=== PATIENT | male | born 1970 ===

== ENCOUNTER 2024-08-30 12:02 | Emergency (ER) | payer OTHER, SELFPAY ==
[2024-08-30 12:05] VITALS: BP 125/86
[2024-08-30 12:07] VITALS: BMI 28.3
[2024-08-30 12:33] LABS: % Basophils 0.7 % (0-2); % Eosinophils 0.7 % (0-6); % Immature Granulocytes 0.1 % (0-0.5); % Lymphocytes 23.9 % (20.5-51.1); % Monocytes 5.8 % (1.7-9.3); % Neutrophils 68.8 % (42.2-75.2); Absolute Basophils 0.1 10^3/uL (0-0.2); Absolute Eosinophils 0.1 10^3/uL (0-0.7); Absolute Lymphocytes 1.7 10^3/uL (1.2-3.4); Absolute Monocytes 0.4 10^3/uL (0.1-0.6); Absolute Neutrophils 4.9 10^3/uL (1.4-6.5); Hematocrit 35.5 % (39.0-52.0); Hemoglobin 12.9 g/dL (13.0-18.0); Mean Corp Hgb Conc. 36.3 g/dL (33.0-37.0); Mean Corpuscular Hgb 30.1 pg (27.0-31.0); Mean Corpuscular Volume 82.8 fL (80.0-94.0); Mean Platelet Volume 9.7 fL (7.4-10.4); Nucleated Red Blood Cells % 0 % (-); Platelet Count 272 10^3/uL (130-400); Red Blood Cell Count 4.29 10^6/uL (4.70-6.10); Red Cell Dist. Width 11.3 % (11.5-14.5); White Blood Cell Count 7.1 10^3/uL (4.8-10.8)
--- NOTE | 2024-08-30 12:50 | ED.GENMED ---
History of Present Illness
<Wendy Jennings PA-C - Last Filed: 08/31/24 22:26>
General
Chief Complaint: Cardiac Symptoms
Source: patient
Exam Limitations: none
Time Seen by Provider: 08/30/24 12:09
Nursing documentation reviewed up to this point in time: agreed with
History of Present Illness
History of Present Illness:
see MDM
Past History
<ZACH Lange Last Filed: 08/31/24 22:26>
Past History
ED Past Medical History: Other (opiate dependence ) and Other (kidney sotne)
ED Past Surgical History: None
Review of Systems
<Wendy Jennings PA-C - Last Filed: 08/31/24 22:26>
Review of Systems
Allergies reviewed?: Yes
All Other Systems: Not applicable
Phy Exam
<ZACH Lange Last Filed: 08/31/24 22:26>
Physical Exam
Physical Exam:
GENERAL: Alert , in no apparent distress
EYE: pupils equal and reactive
NECK: Supple
ENT: o/p clr, mmm.
CARDIAC: Regular rate and rhythm .
chest wall nontender
LUNGS: Clear breath sounds bilaterally, no acute respiratory distress, no wheezes/rales/rhonchi
ABDOMEN: Soft, without focal tenderness, no r/g, no cvat, normal bowel sounds
NEUROLOGICAL: Alert and oriented, no focal neuro deficits
SKIN: Warm and dry, skin intact.
MUSCULOSKELETAL: No edema, well perfused. neg laverne's sign
PSYCH: Normal and appropriate interaction.
Course
<ZACH Lange Last Filed: 08/31/24 22:26>
Orders/Labs/Results
Orders:
Orders
08/30/24 12:09
Electrocardiogram (*1) Urgent
Reason for Study: Chest Pain
Cardiac Monitoring- Treatment ONCE
EKG- Treatment ONCE
IV Insert/Care/Rem.- Treatment PRN
O2 Therapy [RESP] Urgent
Titrate/Wean O2 to maintain O2 sat greater than (%): 90
Special Instructions: Maintain sats >/=90%
Pulse Ox/spot Check [RESP] Urgent
Quantity: 1
Special Instructions: ON ROOM AIR
08/30/24 12:10
Complete Blood Count/With Diff Urgent
Comprehensive Metabolic Panel Urgent
Troponin I Urgent
08/30/24 12:45
Bladder Scan- Treatment ONCE
08/30/24 12:47
CR Chest - 2 Views Urgent
Comment:
Reason For Exam: sudden chst tightness
08/30/24 12:58
D-Dimer Urgent
08/30/24 13:23
EKG- Treatment ONCE
08/30/24 13:43
Fentanyl, Urine Urgent
Urinalysis Reflex To Culture Urgent
Date Specimen was Collected: 08/30/24
Time Specimen was Collected: 12:47
Urine Drug Abuse Screen Urgent
Date Specimen was Collected: 08/30/24
Time Specimen was Collected: 12:47
08/30/24 13:59
Add On- LAB Urgent
Tests Added?: urine drug screen
08/30/24 14:11
Tamsulosin [Flomax] 0.4 mg PO NOW STA
08/30/24 14:15
CT Abd/pel Without Iv Or Oral Urgent
Comment:
Reason For Exam: h/o kidney stones, urinary retnetion
08/30/24 16:30
Electrocardiogram (*1) Urgent
Reason for Study: Chest Pain
Troponin I Urgent
Abnormal Lab Results
08/30/24 08/30/24
12:10 13:43
RBC 4.29 L 10^6/uL
(4.70-6.10)
Hgb 12.9 L g/dL
(13.0-18.0)
Hct 35.5 L %
(39.0-52.0)
RDW 11.3 L %
(11.5-14.5)
Glucose 116 H mg/dl
(70-99)
Ur Buprenorphine Positive H
(Negative)
08/30/24 12:10
08/30/24 12:10
Vital Signs
Initial and Last Documented VS:
Initial Vital Signs
Temp Pulse Resp BP Pulse Ox
37.1 C 95 20 125/86 97
08/30/24 12:05 08/30/24 12:05 08/30/24 12:05 08/30/24 12:05 08/30/24 12:05
Last Documented Vital Signs
Temp Pulse Resp BP Pulse Ox
37.1 C 76 14 138/88 99
08/30/24 12:05 08/30/24 17:15 08/30/24 17:15 08/30/24 14:00 08/30/24 14:00
<Olamide Kirkland PA-C - Last Filed: 08/31/24 00:45>
Orders/Labs/Results
Orders:
Orders
08/30/24 12:09
Electrocardiogram (*1) Urgent
Reason for Study: Chest Pain
Cardiac Monitoring- Treatment ONCE
EKG- Treatment ONCE
IV Insert/Care/Rem.- Treatment PRN
O2 Therapy [RESP] Urgent
Titrate/Wean O2 to maintain O2 sat greater than (%): 90
Special Instructions: Maintain sats >/=90%
Pulse Ox/spot Check [RESP] Urgent
Quantity: 1
Special Instructions: ON ROOM AIR
08/30/24 12:10
Complete Blood Count/With Diff Urgent
Comprehensive Metabolic Panel Urgent
Troponin I Urgent
08/30/24 12:45
Bladder Scan- Treatment ONCE
08/30/24 12:47
CR Chest - 2 Views Urgent
Comment:
Reason For Exam: sudden chst tightness
08/30/24 12:58
D-Dimer Urgent
08/30/24 13:23
EKG- Treatment ONCE
08/30/24 13:43
Fentanyl, Urine Urgent
Urinalysis Reflex To Culture Urgent
Date Specimen was Collected: 08/30/24
Time Specimen was Collected: 12:47
Urine Drug Abuse Screen Urgent
Date Specimen was Collected: 08/30/24
Time Specimen was Collected: 12:47
08/30/24 13:59
Add On- LAB Urgent
Tests Added?: urine drug screen
08/30/24 14:11
Tamsulosin [Flomax] 0.4 mg PO NOW STA
08/30/24 14:15
CT Abd/pel Without Iv Or Oral Urgent
Comment:
Reason For Exam: h/o kidney stones, urinary retnetion
08/30/24 16:30
Electrocardiogram (*1) Urgent
Reason for Study: Chest Pain
Troponin I Urgent
Abnormal Lab Results
08/30/24 08/30/24
12:10 13:43
RBC 4.29 L 10^6/uL
(4.70-6.10)
Hgb 12.9 L g/dL
(13.0-18.0)
Hct 35.5 L %
(39.0-52.0)
RDW 11.3 L %
(11.5-14.5)
Glucose 116 H mg/dl
(70-99)
Ur Buprenorphine Positive H
(Negative)
08/30/24 12:10
08/30/24 12:10
Vital Signs
Initial and Last Documented VS:
Initial Vital Signs
Temp Pulse Resp BP Pulse Ox
37.1 C 95 20 125/86 97
08/30/24 12:05 08/30/24 12:05 08/30/24 12:05 08/30/24 12:05 08/30/24 12:05
Last Documented Vital Signs
Temp Pulse Resp BP Pulse Ox
37.1 C 76 14 138/88 99
08/30/24 12:05 08/30/24 17:15 08/30/24 17:15 08/30/24 14:00 08/30/24 14:00
<Wendy Jennings PA-C - Last Filed: 08/31/24 22:26>
MDM/Problems Addressed
Differential Diagnosis Includes:
see MDM
MDM/Problems Addressed:
Note:
CHIEF COMPLAINT(S)
Chest tightness, shortness of breath, and difficulty urinating.
HISTORY OF PRESENT ILLNESS
The patient is a 53-year-old male who presented with a chief complaint of chest tightness, which began around 10:30 AM today. He described the sensation as extremely tight in the chest, making it difficult to inspire. He also experienced tingling
sensations in his left arm and noted being diaphoretic. The discomfort was so severe that it brought him to his knees and was associated with nausea. The patient was not engaging in physical activity when the symptoms began; he was in his cell after
taking morning medication. Since the incident, he has been aware of a lingering discomfort rated as a 3 out of 10, down from a 9 at its peak.
In addition to these symptoms, the patient has experienced lightheadedness over the past few days, especially during exercise, and reports difficulty initiating urination. He describes it as feeling the urge but being unable to relax to begin
micturition. This urinary difficulty began concurrently with the lightheadedness.
The patient received nitroglycerin during transportation, which seemed to alleviate the chest discomfort. He had no prior history of cardiac issues or surgery.
ADDITIONAL HISTORY OBTAINED FROM SOURCES OTHER THAN THE PATIENT
According to EMS, the patient received nitroglycerin sublingually during transport, which provided symptom relief after a few doses.
CHRONIC MEDICAL CONDITIONS SIGNIFICANTLY AFFECTING CARE
The patients mother had a history of a heart attack.
FAMILY HISTORY
The patients mother had a heart attack and shortly [id number] y/o. His father had a rare cardiac-related cancer and respiratory issues.
REVIEW OF SYSTEMS
- Cardiovascular: Severe chest tightness, tingling sensation in left arm, diaphoresis.
- Neurological: Lightheadedness, especially with exertion.
- Gastrointestinal: Nausea and emesis.
- Genitourinary: Difficulty initiating urination, sensation of inability to relax.
- General: Exercise-related dyspnea, sensation similar to being extremely fatigued after running.
PHYSICAL EXAM
- Nursing notes reviewed and vital signs reviewed.
PROBLEM LIST
Acute:
- Acute severe chest tightness.
- Nausea and vomiting.
- Lightheadedness.
- Difficulty with urination.
CHRONIC
- Positive family history of cardiac issues.
PLAN
- Conduct serial cardiac enzyme tests to rule out myocardial infarction, with an initial test followed by subsequent testing to assess enzyme presence due to delayed release post-symptom onset.
- Perform a bladder scan to assess urinary retention and determine urine quantity.
- Ensure patient comfort and consider offering food if initial lab results are reassuring and the patient expresses hunger.
DIFFERENTIAL DIAGNOSIS
The Differential Diagnosis includes, in no particular order and is not limited to:
- Myocardial infarction
- Pulmonary embolism
- Pericarditis
- Musculoskeletal chest pain
- Anxiety or panic disorder
- Pneumothorax
- Acute coronary syndrome
- Esophageal spasm
- Costochondritis
- Aortic dissection
CARE-UPDATE
08/30/24 - 14:04
Patient exhibits significant urinary retention,. Bladder scan shows approximately 500ml retained. Cardiopulmonary status appears normal, with repeat blood work planned for 4:30 to monitor cardiac health.
Notable urinary retention etiology includes potential prostate enlargement, though etiology remains unclear due to the absence of common contributing factors such as medication or infection. The possibility of an undiagnosed urinary tract infection
will be explored, with urine analysis pending. If bacterial growth is observed, antibiotic treatment will be initiated alongside a one-week Vigil catheter placement.
Should the absence of infection and persistent urinary retention continue, prostate medication initiation or urology referral may be necessary. In the interim, encourage patient to attempt voiding before Vigil catheter placement is considered.
Increased fluid intake not currently advised due to retention issue. Patient advised to remain attentive to any difficulty voiding and seek immediate follow-up.
Patient is concerned about a family history of prostate cancer and offered reassurance regarding current urologic symptoms, emphasizing the need for further evaluation if not resolved by simple measures. Discussed potential impact of incarceration
on healthcare access but advised against indefinite deferral of medical evaluation if symptoms persist post-incarceration.
1415 - PT VOIDED 500 ML
no need for vigil
pvr 23 ML
pt has h/o kidney stones and since hew as having pain and was inretention, ct was ordered
i had spoken with dr. bobo from urology who recommended flomax if the patien thas enlarged prostate or has retention again
signed out to [facility] castillo at 1500 pending repeat trop/ekg
chest pain controlled
<Wendy Jennings PA-C - Last Filed: 08/31/24 22:26>
*Pulse Oximetry
SaO2: 97
Patient hypoxic: no
Comment: 97
<Olamide Kirkland PA-C - Last Filed: 08/31/24 00:45>
*Critical Care Note
Total Time (30-74mins, 75-104mins- exclusive of procedures): Not Applicable
<Olamide Kirkland PA-C - Last Filed: 08/31/24 00:45>
Update Note
Update Note:
Update: Received patient in signout. Repeat troponin undetectable and patient remains asymptomatic in the emergency department. CT scan reveals no obstructing uropathy or enlarged prostate. Patient denies any chest pain or shortness of breath
currently and urinated without difficulty. Consider Flomax however given no evidence of obstructing stone or enlarged prostate on CT imaging along with complete emptying of bladder�do not feel indicated at this time. Ultimately�workup in emergency
department is negative. Feel stable for discharge back to skilled nursing with primary care follow-up. Referral information given for urology if needed. Strict return precautions discussed. Patient comfortable with plan.
ED Attending Note
<Wendy Jennings PA-C - Last Filed: 08/31/24 22:26>
-
Portions of this chart may have been created with voice recognition software.� Occasional wrong word or��sound alike� substitutions may have occurred due to the inherent limitations of voice recognition software.
Discharge Plan
Departure
Patient Disposition: Home (Routine Discharge)
Date of Disposition: 08/30/24
Time of Disposition: 17:18
Patient with high blood pressure during this ER visit?: Yes
Condition: Good
Discharge Problem:
Chest pain
Instructions: Chest Pain (DC), BLOOD PRESSURE
Referrals:
[facility] [Family Provider, General]
Thnog Bobo MD [Active, Urology] - As needed
Activity Restrictions/Additional Instructions:
RETURN TO THE EMERGENCY DEPARTMENT WITH ANY CHEST PAIN, SHORTNESS OF BREATH/DIFFICULTY BREATHING, SEVERE BACK PAIN, DIZZINESS/LIGHTHEADEDNESS, INABILITY TO URINATE, OR ANY OTHER CONCERNS
- As discussed your lab work and cardiac markers showed no acute abnormalities in the emergency department. Your CT scan showed no evidence of an obstructing kidney stone.
- Continue to take any medications as prescribed. Stay well-hydrated.
- Please follow-up with primary care and urology as needed for further evaluation/management.
Monitor your symptoms closely and return to the emergency department with any acute worsening/new symptoms or any other concerns.
Patient is medically cleared for incarceration
Interventions
Interventions:
*Risk Screen - Suicide Last Done: 08/30/24 12:07
*General Assessment Last Done: 08/30/24 12:07
*Neglect/Abuse Screening Last Done: 08/30/24 12:18
*ED- Fall Risk Assessment Last Done: 08/30/24 12:18
*ED COVID-19 Vaccine History Last Done: 08/30/24 12:18
*Nursing Disposition Last Done: 08/30/24 17:42
ED- Pulmonary Assessment Last Done: 08/30/24 12:18
ED- Cardiac Assessment Last Done: 08/30/24 12:18
Discharge Date and Time
Discharge Date/Time: 08/30/24 17:43
Print Language: GERMAN
[2024-08-30 12:51] LABS: ALT (SGPT) 24 U/L (0-50); AST (SGOT) 22 U/L (17-59); Albumin 4.5 g/dl (3.5-5.0); Alkaline Phosphatase 64 U/L (38-126); Blood Urea Nitrogen 18 mg/dl (9-20); Calcium 9.9 mg/dl (8.4-10.2); Carbon Dioxide 25 mmol/L (22-30); Chloride 105 mmol/L (98-107); Estimated Creatinine Clearance 112 ml/min; Glucose 116 mg/dl (70-99); Potassium 4.3 mmol/L (3.5-5.1); Sodium 137 mmol/L (135-145); Total Bilirubin 0.6 mg/dl (0.2-1.3); Total Protein 6.8 g/dl (6.3-8.2); eGFR > 60.00
[2024-08-30 13:03] LABS: Troponin I < 0.012 ng/ml
[2024-08-30 13:20] LABS: D-Dimer < 0.27 ug/mlFEU (0.00-0.50)
[2024-08-30 13:36] VITALS: BP 133/84
[2024-08-30 14:00] VITALS: BP 138/88
[2024-08-30 14:22] LABS: Urine Albumin Negative (Neg - Trace); Urine Bilirubin Negative (Negative); Urine Character Clear (Clear); Urine Color Yellow; Urine Glucose Negative (Negative); Urine Ketone Negative (Negative); Urine Leukocyte Negative (Negative); Urine Nitrite Negative (Negative); Urine Occult Blood Negative (Negative); Urine Specific Gravity 1.015 (<1.030); Urine Urobilinogen Negative (Neg - 1+)
[2024-08-30 14:49] LABS: Amphetamines Negative (Negative); Barbiturates Negative (Negative); Benzodiazepines Negative (Negative); Buprenorphine Positive (Negative); Cocaine Negative (Negative); Marijuana Negative (Negative); Methadone Negative (Negative); Methamphetamines Negative (Negative); Opiates Negative (Negative); Phencyclidine Negative (Negative); Tricyclic Antidepressants Negative (Negative)
[2024-08-30 15:07] LABS: Fentanyl, Urine Negative (Negative)
[2024-08-30 17:00] LABS: Troponin I < 0.012 ng/ml
== END 2024-08-30 17:43 | disposition home or self-care (01) ==
LOC: EMR 12:02
PROVIDERS: Emergency Medicine; Physician Assistant; EMERGENCY PHYSICIAN Emergency Medicine
DX: R07.89 Other chest pain (principal); R06.02 Shortness of breath; R33.9 Retention of urine, unspecified; K59.00 Constipation, unspecified; Z82.49 Family history of ischemic heart disease and other diseases of the circulatory system; Z87.442 Personal history of urinary calculi
CPT/HCPCS: 99284; 71046; 74176; 80053; 80306; 80307; 81003; 84484; 85025; 85379; 93005